=== PATIENT | female | born 1990 | race Caucasian/White ===

== ENCOUNTER 2017-04-09 08:26 | Emergency (ER) | payer OTHER ==
[~2017-04-09] VITALS: Ht 175.3 cm; Wt 113.4 kg
[~2017-04-09 08:26] MED LIST: BACTRIM DS TAB1 EACH PO; BUSPIRONE HCL15 MG PO; FLEXERIL10 MG PO; GUAIATUSSIN AC10 ML PO; LEXAPRO10 MG PO; LEXAPRO20 MG PO; NAPROSYN500 MG PO; OMEPRAZOLE20 MG PO; ULTRAM50 MG PO; VICODIN 5-5001 EACH PO; ZITHROMAX500 MG PO; ZOFRAN4 MG PO
[2017-04-09] MEDS ORDERED: NORCO 5-325 TA1 EACH PO (10:16)
== END 2017-04-09 10:29 | disposition home or self-care (01) ==
LOC: ED 08:26
DX: S70.01XA Contusion of right hip, initial encounter (principal); F41.1 Generalized anxiety disorder; F60.3 Borderline personality disorder; F17.200 Nicotine dependence, unspecified, uncomplicated; Z79.899 Other long term (current) drug therapy; W50.0XXA Accidental hit or strike by another person, initial encounter
CPT/HCPCS: 72170; 84703; 99283

== ENCOUNTER 2018-09-05 21:08 | Emergency (ER) | payer OTHER ==
[~2018-09-05] VITALS: Ht 175.3 cm; Wt 113.4 kg
[~2018-09-05 21:08] MED LIST changes: +NORCO 5-325 TA1 EACH PO
--- OUTSIDE RECORDS SUMMARY | 2018-09-05 21:14 | XMS ---
PreManage Notification: LUISANA MAYES Security Tugboat Pilot Events No recent Security Events currently on file CRITERIA MET - Group Notification CARE PROVIDERS TIP YAÑEZ Primary Care Current PHONE: [phone] Wally has no Care Guidelines for this patient. EChiquita VISIT COUNT (12 MO.) 1 [facility] TOTAL 1 NOTE: Visits indicate total known visits. ED/UCC VISIT TRACKING (12 MO.) 09/05/2018 21:09 [facility] [place] TYPE: Emergency COMPLAINT: - HEADACHE/NECK PAIN-NON INJURY INPATIENT VISIT TRACKING (12 MO.) No inpatient visits to display in this time frame [id number]
== END 2018-09-05 22:28 | disposition home or self-care (01) ==
LOC: ED 21:08
PROC: 009U3ZX Drainage of Spinal Canal, Percutaneous Approach, Diagnostic (ICD-10-PCS; principal; 2018-09-05)
DX: J06.9 Acute upper respiratory infection, unspecified (principal); F41.9 Anxiety disorder, unspecified; F32.9 Major depressive disorder, single episode, unspecified; F43.10 Post-traumatic stress disorder, unspecified; Z79.899 Other long term (current) drug therapy
CPT/HCPCS: 62270; 87070; 87205; 99283-25

== ENCOUNTER 2019-07-14 08:52 | Emergency (ER) | payer OTHER ==
[~2019-07-14] VITALS: Ht 175.3 cm; Wt 136.1 kg
--- OUTSIDE RECORDS SUMMARY | 2019-07-14 08:54 | XMS ---
PreManage Notification: LUISANA MAYES Security Service Counselor Events No recent Security Events currently on file CRITERIA MET - Group Notification CARE PROVIDERS Isaura Mcdonnell Nurse Practitioner: 09/07/2018-Current PHONE: Unknown ISAURA MCDONNELL Primary Care Current PHONE: [phone] Wally has no Care Guidelines for this patient. Tressa VISIT COUNT (12 MO.) 2 ALEXANDER Bean TOTAL 2 NOTE: Visits indicate total known visits. ED/UCC VISIT TRACKING (12 MO.) 07/14/2019 08:52 [facility] [place] TYPE: Emergency COMPLAINT: - MED REFILL 09/05/2018 21:09 [facility] [place] TYPE: Emergency COMPLAINT: - HEADACHE/NECK PAIN-NON INJURY DIAGNOSES: - Major depressive disorder, single episode, unspecified - Headache - Post-traumatic stress disorder, unspecified - Other terminal press operator (current) drug therapy - Anxiety disorder, unspecified - Acute upper respiratory infection, unspecified INPATIENT VISIT TRACKING (12 MO.) No inpatient visits to display in this time frame [email or web address]
[2019-07-14] MEDS ORDERED: LEXAPRO20 MG PO (09:11)
== END 2019-07-14 09:20 | disposition home or self-care (01) ==
LOC: ED 08:52
DX: Z76.0 Encounter for issue of repeat prescription (principal); F41.9 Anxiety disorder, unspecified; F32.9 Major depressive disorder, single episode, unspecified
CPT/HCPCS: 99281

== ENCOUNTER 2019-09-29 12:48 | Emergency (ER) | payer OTHER ==
[~2019-09-29] VITALS: Ht 175.3 cm; Wt 136.1 kg
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
== END 2019-09-29 15:33 | disposition left against medical advice (07) ==
LOC: ED 12:48
DX: Z53.21 Procedure and treatment not carried out due to patient leaving prior to being seen by health care provider (principal)

== ENCOUNTER 2020-04-18 08:43 | Emergency (ER) | payer OTHER ==
[~2020-04-18] VITALS: Ht 175.3 cm; Wt 136.1 kg
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
[2020-04-18] MEDS ORDERED: LOPERAMIDE2 MG PO (09:07)
[2020-04-18] MEDS ORDERED: VAGISIL CREAM28 G1 TOP (09:07)
== END 2020-04-18 09:25 | disposition home or self-care (01) ==
LOC: ED 08:43
DX: R19.7 Diarrhea, unspecified (principal); M70.841 Other soft tissue disorders related to use, overuse and pressure, right hand; B37.3 Candidiasis of vulva and vagina; F41.9 Anxiety disorder, unspecified; F32.9 Major depressive disorder, single episode, unspecified; Z79.899 Other long term (current) drug therapy
CPT/HCPCS: 99283

== ENCOUNTER 2020-05-03 07:16 | Emergency (ER) | payer OTHER ==
[~2020-05-03] VITALS: Ht 175.3 cm; Wt 145.2 kg
[~2020-05-03 07:16] MED LIST changes: +LOPERAMIDE2 MG PO; +VAGISIL CREAM28 G1 TOP
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
[2020-05-03] MEDS ORDERED: PROMETHAZINE HC25 M1 PO (11:24)
== END 2020-05-03 11:46 | disposition home or self-care (01) ==
LOC: ED 07:16
DX: O21.0 Mild hyperemesis gravidarum (principal); O99.341 Other mental disorders complicating pregnancy, first trimester; F41.1 Generalized anxiety disorder; F32.9 Major depressive disorder, single episode, unspecified; Z87.891 Personal history of nicotine dependence; Z3A.01 Less than 8 weeks gestation of pregnancy
CPT/HCPCS: 80053; 81001; 85025; 96361; 96374; 96376; 99284-25; J2550; J7030

== ENCOUNTER 2020-05-10 07:39 | Emergency (ER) | payer OTHER ==
[~2020-05-10] VITALS: Ht 175.3 cm; Wt 145.2 kg
[~2020-05-10 07:39] MED LIST changes: +PROMETHAZINE HC25 M1 PO
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
[2020-05-10] MEDS ORDERED: LOVENOX120 MG/0.8 SUB-Q (10:31)
== END 2020-05-10 10:41 | disposition home or self-care (01) ==
LOC: ED 07:39
DX: O22.31 Deep phlebothrombosis in pregnancy, first trimester (principal); I82.621 Acute embolism and thrombosis of deep veins of right upper extremity; O99.89 Other specified diseases and conditions complicating pregnancy, childbirth and the puerperium; I47.1 Supraventricular tachycardia; Z3A.08 8 weeks gestation of pregnancy; Z87.891 Personal history of nicotine dependence
CPT/HCPCS: 80048; 85025; 93971; 96372; 99284-25; J1650

== ENCOUNTER 2020-09-01 10:26 | Emergency (ER) | payer OTHER ==
[~2020-09-01] VITALS: Ht 175.3 cm; Wt 145.1 kg
[~2020-09-01 10:26] MED LIST changes: +CEPHALEXIN500 MG PO; +LOVENOX120 MG/0.8 SUB-Q
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
[2020-09-01] MEDS ORDERED: PRENATA CHEWAB1 EACH PO (10:35)
--- NOTE | 2020-09-01 13:53 | EKG ---
[facility] [address] [facility] [place] [address] Signed Normal sinus rhythm Normal ECG No previous ECGs available Confirmed by JUVENAL KILLIAN MD ([id number]) on 09/01/2020 1:52:38 PM Electronically Signed By: JUVENAL KILLIAN MD 09/01/20 1353 PATIENT NAME: LUISANA MAYES Electrocardiogram DATE OF : 86 PHYSICIAN: JUVENAL KILLIAN MD REPORT #: [id number] REPORT IS CONFIDENTIAL AND NOT TO BE RELEASED WITHOUT AUTHORIZATION
== END 2020-09-01 12:58 | disposition home or self-care (01) ==
LOC: ED 10:26
DX: O99.891 Other specified diseases and conditions complicating pregnancy (principal); R07.89 Other chest pain; Z20.828 Contact with and (suspected) exposure to other viral communicable diseases; Z87.891 Personal history of nicotine dependence; Z88.8 Allergy status to other drugs, medicaments and biological substances
CPT/HCPCS: 80053; 83735; 84484; 85025; 93005; 93010; 99285-25; C9803; U0003

== ENCOUNTER 2020-12-11 00:25 | Inpatient (IN) | payer OTHER ==
[~2020-12-11] VITALS: Ht 175.3 cm; Wt 155.6 kg
[~2020-12-11 00:25] MED LIST changes: +PRENATA CHEWAB1 EACH PO
[2020-12-11] MEDS ORDERED: PRILOSEC OTC20 MG PO (01:09)
--- NOTE | 2020-12-11 02:23 | NUR ---
[facility] RAPID COVID TEST DONE PER ORDER. COVID TEST COLLECTED FROM BOTH NARES W/O ISSUE. PT TOLERATED WELL.
--- NOTE | 2020-12-11 08:42 | PR ---
[facility] [address] [facility] [place] [address] Signed Progress Notes IP Datetime Report Generated by CPN: 12/11/2020 08:42 PROGRESS NOTES: [id number] Impression: Normal Progression of Labor Procedures: Artificial ROM Plan: Continue Present Management; Anticipate Vaginal Delivery VITAL SIGNS: [id number] Vital Signs: Reviewed; Within Normal Limits EXAM: [id number] Dilatation: 4.0 Effacement: 50 Station: -3 Contractions: irregular MEMBRANES: [id number] Membranes Status: Ruptured Comments: Tolerating contracitons well, considering Epidural later. Willc ontinue to follow FETUS A: [id number] FHR Baseline: 140 Variability: Moderate 6-25bpm Accelerations: 15X15 Presentation: Vertex FETUS B: [id number] Signing Physician: Gualberto Murphy MD Copies: ~ *Electronically Signed* 12/11/20 0842 GUALBERTO MURPHY MD PATIENT NAME: LUISANA MAYES PROGRESS NOTE DATE OF : 86 PHYSICIAN: GUALBERTO MURPHY MD RPT #: [id number] REPORT IS CONFIDENTIAL AND NOT TO BE RELEASED WITHOUT AUTHORIZATION
--- NOTE | 2020-12-11 13:10 | PR ---
[facility] [address] [facility] [place], [place] [address] Signed Progress Notes IP Datetime Report Generated by CPN: 12/11/2020 13:10 PROGRESS NOTES: [id number] Impression: Normal Progression of Labor Procedures: Artificial ROM Plan: Continue Present Management VITAL SIGNS: [id number] Vital Signs: Reviewed; Within Normal Limits EXAM: [id number] Dilatation: 5.0 Effacement: 75 Station: -3 Contractions: irregular MEMBRANES: [id number] Membranes Status: Ruptured Comments: Contractions getting strong per patient, but not picking up well on external monitor. Beginning to make some change wo will continue moniitor. Patient considering Epidural soon, but not yet. FETUS A: [id number] FHR Baseline: 140 Variability: Moderate 6-25bpm Accelerations: 15X15 Presentation: Vertex FETUS B: [id number] Signing Physician: Gualberto Murphy MD Copies: ~ *Electronically Signed* 12/11/20 1310 GUALBERTO MURPHY MD PATIENT NAME: LUISANA MAYES PROGRESS NOTE DATE OF : 86 PHYSICIAN: GUALBERTO MURPHY MD RPT #: [id number] REPORT IS CONFIDENTIAL AND NOT TO BE RELEASED WITHOUT AUTHORIZATION
--- NOTE | 2020-12-11 15:37 | PR ---
[facility] [address] [facility] [place] [address] Signed Progress Notes IP Datetime Report Generated by CPN: 12/11/2020 15:37 PROGRESS NOTES: [id number] Impression: Normal Progression of Labor Other Impressions: Slow progress Procedures: Intrauterine Pressure Catheter Plan: Augmentation Other Plans: Pitocin VITAL SIGNS: [id number] Vital Signs: Reviewed; Within Normal Limits EXAM: [id number] Dilatation: 6.0 Effacement: 50 Station: -3 Contractions: irregular MEMBRANES: [id number] Membranes Status: Ruptured Comments: Contractions seem to not be close enoug; will start Pitocin augmentation. FETUS A: [id number] FHR Baseline: 140 Variability: Moderate 6-25bpm Accelerations: 15X15 Presentation: Vertex FETUS B: [id number] Signing Physician: Gualberto Murphy MD Copies: ~ *Electronically Signed* 12/11/20 1537 GUALBERTO MURPHY MD PATIENT NAME: LUISANA MAYES PROGRESS NOTE DATE OF : 86 PHYSICIAN: GUALBERTO MURPHY MD RPT #: [id number] REPORT IS CONFIDENTIAL AND NOT TO BE RELEASED WITHOUT AUTHORIZATION
--- NOTE | 2020-12-12 18:18 | PR ---
[facility] [address] [place] [address] Signed PP Progress Notes Datetime Report Generated by CPN: 12/12/2020 18:17 SUBJECTIVE: [id number] Pain: Within Normal Limits Nausea/Vomiting: Present Vital Signs: [id number] Vital Signs: Reviewed; Within Normal Limits Abdomen/Uterus: Normal Lochia: Normal Extremities: Normal IMPRESSION/PLAN/PROCEDURES: [id number] Impression: Normal Progression Plan: Continue Present Management Procedures: None Progress Notes: Doing well, without complalint, tolerating Lovenox injections, BP elevated this am, but resolvbed spontaneously using bigger cuff, since large patient size. Probably home tomorrow. Signing Physician: Gualberto Murphy MD Copies: ~ *Electronically Signed* 12/12/201816 GUALBERTO MURPHY MD PATIENT NAME: LUISANA MAYES PROGRESS NOTE DATE OF : 86 PHYSICIAN: GUALBERTO MURPHY MD RPT #: [id number] REPORT IS CONFIDENTIAL AND NOT TO BE RELEASED WITHOUT AUTHORIZATION
--- NOTE | 2020-12-13 11:00 | PR ---
[facility] [address] [facility] [place] [address] Signed PP Progress Notes Datetime Report Generated by CPN: 12/13/2020 11:00 SUBJECTIVE: [id number] Pain: Within Normal Limits Nausea/Vomiting: Denies Vital Signs: [id number] Vital Signs: Reviewed; Within Normal Limits Abdomen/Uterus: Normal Lochia: Normal Extremities: Normal IMPRESSION/PLAN/PROCEDURES: [id number] Impression: Normal Progression Plan: Discharge Procedures: None Progress Notes: Doing well, without complaint, ready to go home. No problems with right arm. Signing Physician: Gualberto Murphy MD Copies: ~ *Electronically Signed* 12/13/20 [facility] GUALBERTO MURPHY MD PATIENT NAME: LUISANA MAYES PROGRESS NOTE DATE OF : 86 PHYSICIAN: GUALBERTO MURPHY MD RPT #: [id number] REPORT IS CONFIDENTIAL AND NOT TO BE RELEASED WITHOUT AUTHORIZATION
--- NOTE | 2020-12-13 11:01 | PR ---
[facility] [address] [facility] [place] [address] Signed PP Progress Notes Datetime Report Generated by CPN: 12/13/2020 11:01 SUBJECTIVE: [id number] Pain: Within Normal Limits Nausea/Vomiting: Denies Vital Signs: [id number] Vital Signs: Reviewed; Within Normal Limits Abdomen/Uterus: Normal Lochia: Normal Extremities: Normal IMPRESSION/PLAN/PROCEDURES: [id number] Impression: Normal Progression Plan: Discharge Procedures: None Progress Notes: Doing well, without complaint, ready to go home. No problems with right arm. Signing Physician: Gualberto Murphy MD Copies: ~ *Electronically Signed* 12/13/20 1101 GUALBERTO MURPHY MD PATIENT NAME: LUISANA MAYES PROGRESS NOTE DATE OF : 86 PHYSICIAN: GUALBERTO MURPHY MD RPT #: [id number] REPORT IS CONFIDENTIAL AND NOT TO BE RELEASED WITHOUT AUTHORIZATION
== END 2020-12-13 13:00 | disposition home or self-care (01) | DRG 806 ==
LOC: FBC 00:25 → MS 12-12 12:10 → FBC 12-12 14:26
PROVIDERS: ADMIT General Practice; ATTEND General Practice
PROC: 10E0XZZ Delivery of Products of Conception, External Approach (ICD-10-PCS; principal; 2020-12-11)
PROC: 10907ZC Drainage of Amniotic Fluid, Therapeutic from Products of Conception, Via Natural or Artificial Opening (ICD-10-PCS; 2020-12-11)
PROC: 10H07YZ Insertion of Other Device into Products of Conception, Via Natural or Artificial Opening (ICD-10-PCS; 2020-12-11)
PROC: 0HQ9XZZ Repair Perineum Skin, External Approach (ICD-10-PCS; 2020-12-11)
PROC: 00HU33Z Insertion of Infusion Device into Spinal Canal, Percutaneous Approach (ICD-10-PCS; 2020-12-11)
PROC: 3E0R3BZ Introduction of Anesthetic Agent into Spinal Canal, Percutaneous Approach (ICD-10-PCS; 2020-12-11)
PROC: 3E0234Z Introduction of Serum, Toxoid and Vaccine into Muscle, Percutaneous Approach (ICD-10-PCS; 2020-12-12)
DX: O87.1 Deep phlebothrombosis in the puerperium (principal); I82.621 Acute embolism and thrombosis of deep veins of right upper extremity; Z37.0 Single live birth; O99.324 Drug use complicating childbirth; Z20.822 Contact with and (suspected) exposure to COVID-19; Z3A.39 39 weeks gestation of pregnancy; O70.0 First degree perineal laceration during delivery; F12.90 Cannabis use, unspecified, uncomplicated; O99.344 Other mental disorders complicating childbirth; F41.9 Anxiety disorder, unspecified; F32.9 Major depressive disorder, single episode, unspecified; O26.893 Other specified pregnancy related conditions, third trimester; O69.81X0 Labor and delivery complicated by cord around neck, without compression, not applicable or unspecified; Z67.21 Type B blood, Rh negative; Z88.8 Allergy status to other drugs, medicaments and biological substances; Z79.01 Long term (current) use of anticoagulants; Z87.891 Personal history of nicotine dependence; Z87.440 Personal history of urinary (tract) infections; Z86.19 Personal history of other infectious and parasitic diseases
CPT/HCPCS: 01960; 36415; 82565; 83030; 84450; 84520; 84550; 85025; 85027; 85730; 86850; 86870; 86900; 86901; A9270; C9803; J1650; J2590; J2790; J2795; J3010; U0003

== ENCOUNTER 2021-12-20 12:17 | Emergency (ER) | payer OTHER ==
[~2021-12-20] VITALS: Ht 182.9 cm; Wt 155.6 kg
[~2021-12-20 12:17] MED LIST changes: +PRILOSEC OTC20 MG PO
--- OUTSIDE RECORDS SUMMARY | 2021-12-20 12:24 | XMS ---
PreManage Notification: LUISANA MAYES Security Autocutter Events No recent Security Events currently on file CRITERIA MET - Group Notification CARE PROVIDERS GUALBERTO MURPHY [facility] 07/15[facility]-Current PHONE: Unknown Isaura Mcdonnell Nurse Practitioner: 09/07/2018-Current PHONE: Unknown Care Guidelines exist for the following facilities: [facility] ( 01/15/2020 ) Care History Medical/Surgical 05/06/2020 [facility] - PATIENT CURRENT OBLAUREN- DR MURPHY-NEXT APT 09/10/2020. E.D. VISIT COUNT (12 MO.) 1 ALEXANDER Bean TOTAL 1 NOTE: Visits indicate total known visits. ED/UCC VISIT TRACKING (12 MO.) 12/20/2021 12:17 [facility] [place] TYPE: Emergency COMPLAINT: - CHEST PAIN INPATIENT VISIT TRACKING (12 MO.) No inpatient visits to display in this time frame [email or web address]
--- NOTE | 2021-12-21 07:39 | EKG ---
[facility] [address] [facility] [place], [place] [address] Signed Normal sinus rhythm Normal ECG When compared with ECG of 01-SEP-2020 10:29, No significant change was found Confirmed by HAVEN RAMOS MD ([id number]) on 12/21/2021 7:38:47 AM Electronically Signed By: HAVEN RAMOS MD 12/21/21 0739 PATIENT NAME: LUISANA MAYES KELLY Electrocardiogram DATE OF : 86 PHYSICIAN: HAVEN RAMOS MD REPORT #: [id number] REPORT IS CONFIDENTIAL AND NOT TO BE RELEASED WITHOUT AUTHORIZATION
== END 2021-12-20 15:54 | disposition home or self-care (01) ==
LOC: ED 12:17
DX: R07.89 Other chest pain (principal); Z86.718 Personal history of other venous thrombosis and embolism; Z87.891 Personal history of nicotine dependence; Z88.8 Allergy status to other drugs, medicaments and biological substances
CPT/HCPCS: 36415; 71045; 71260; 80053; 84484; 84703; 85025; 85379; 93005; 93010; 99285-25; Q9967

== ENCOUNTER 2022-07-29 10:51 | Emergency (ER) | payer OTHER ==
[~2022-07-29] VITALS: Ht 175.3 cm; Wt 160.6 kg
--- OUTSIDE RECORDS SUMMARY | 2022-07-29 10:59 | XMS ---
PreManage Notification: LUISANA MAYES Security Windows Server Engineer Events No recent Security Events currently on file CRITERIA MET - Group Notification CARE PROVIDERS GUALBERTO MURPHY [facility] 07/15/2020-Current PHONE: Unknown Isaura Mcdonnell Nurse Practitioner: 09/07/2018-Current PHONE: Unknown Care Guidelines exist for the following facilities: [facility] ( 01/15/2020 ) Care History Medical/Surgical 05/06/2020 [facility] - PATIENT CURRENT OBLAUREN- DR MURPHY-NEXT APT 09/10/2020. E.D. VISIT COUNT (12 MO.) [address] [facility] TOTAL 3 NOTE: Visits indicate total known visits. ED/UCC VISIT TRACKING (12 MO.) 07/29/2022 10:52 [facility] [place] TYPE: Emergency COMPLAINT: - CHEST CONGESTION, VOMITING, CHILLS 03/12/2022 10:24 [facility] [place] TYPE: Emergency COMPLAINT: - SORE THROAT, SOB, COLD SYMPTOMS 12/20/2021 12:[address] [facility] [place] TYPE: Emergency COMPLAINT: - CHEST PAIN DIAGNOSES: - Other chest pain - Personal history of nicotine dependence - Personal history of other venous thrombosis and embolism - Allergy status to other drugs, medicaments and biological substances INPATIENT VISIT TRACKING (12 MO.) No inpatient visits to display in this time frame [email or web address]
[2022-07-29] MEDS ORDERED: VENTOLIN HFA18 GM INH (12:25)
[2022-07-29] MEDS ORDERED: DOXYCYCLINE HY100 MG PO (12:25)
== END 2022-07-29 12:56 | disposition home or self-care (01) ==
LOC: ED 10:51
DX: J44.9 Chronic obstructive pulmonary disease, unspecified (principal); Z20.822 Contact with and (suspected) exposure to COVID-19; F43.10 Post-traumatic stress disorder, unspecified; Z87.891 Personal history of nicotine dependence; Z88.8 Allergy status to other drugs, medicaments and biological substances
CPT/HCPCS: 87502; 99284; A9270; C9803; U0003

== ENCOUNTER 2022-10-15 10:05 | Emergency (ER) | payer OTHER ==
[~2022-10-15] VITALS: Ht 175.3 cm; Wt 157.9 kg
[~2022-10-15 10:05] MED LIST changes: +DOXYCYCLINE HY100 MG PO; +VENTOLIN HFA18 GM INH
--- OUTSIDE RECORDS SUMMARY | 2022-10-15 10:13 | XMS ---
PreManage Notification: LUISANA MAYES Security Cover Marker Events No recent Security Events currently on file CRITERIA MET - Group Notification CARE PROVIDERS GUALBERTO MURPHY [facility] 07/15/2020-Current PHONE: Unknown Isaura Mcdonnell Nurse Practitioner: 09/07/2018-Current PHONE: Unknown Care Guidelines exist for the following facilities: [facility] ( 01/15/2020 ) Care History Medical/Surgical 05/06/2020 [facility] - PATIENT CURRENT OBLAUREN- DR MURPHY-NEXT APT 09/10/2020. E.D. VISIT COUNT (12 MO.) [address] [facility] TOTAL 4 NOTE: Visits indicate total known visits. ED/UCC VISIT TRACKING (12 MO.) 10/15/2022 10:06 [facility] [place] TYPE: Emergency COMPLAINT: - SOB, COUGH 07/29/2022 10:52 [facility] [place] TYPE: Emergency COMPLAINT: - CHEST CONGESTION, VOMITING, CHILLS DIAGNOSES: - Allergy status to other drugs, medicaments and biological substances - Chronic obstructive pulmonary disease, unspecified - Post-traumatic stress disorder, unspecified - Personal history of nicotine dependence - Cough, unspecified - Contact with and (suspected) exposure to COVID-19 03/12/2022 10:[address] [facility] [place] TYPE: Emergency COMPLAINT: - SORE THROAT, SOB, COLD SYMPTOMS 12/20/2021 12:[address] [facility] [place] TYPE: Emergency COMPLAINT: - CHEST PAIN DIAGNOSES: - Personal history of other venous thrombosis and embolism - Allergy status to other drugs, medicaments and biological substances - Other chest pain - Personal history of nicotine dependence INPATIENT VISIT TRACKING (12 MO.) No inpatient visits to display in this time frame [email or web address]
[2022-10-15] MEDS ORDERED: PREDNISONE20 MG PO (11:52)
== END 2022-10-15 12:08 | disposition home or self-care (01) ==
LOC: ED 10:05
DX: J20.9 Acute bronchitis, unspecified (principal); Z88.8 Allergy status to other drugs, medicaments and biological substances; Z87.891 Personal history of nicotine dependence
CPT/HCPCS: 99283; J7512

== ENCOUNTER 2022-12-21 14:55 | Emergency (ER) | payer OTHER ==
[~2022-12-21] VITALS: Ht 175.3 cm; Wt 158.8 kg
[~2022-12-21 14:55] MED LIST changes: +PREDNISONE20 MG PO
--- OUTSIDE RECORDS SUMMARY | 2022-12-21 15:03 | XMS ---
PreManage Notification: LUISANA MAYES Security Resident Care Associate Events No recent Security Events currently on file CRITERIA MET - Group Notification CARE PROVIDERS -[facility]- Dentist: [employer] [facility] PHONE: [phone] GUALBERTO MURPHY [employer] 07/15/2020-Current PHONE: Unknown Isaura Mcdonnell Nurse Practitioner: 09/07/2018-Current PHONE: Unknown Care Guidelines exist for the following facilities: [facility] ( 01/15/2020 ) Care History Medical/Surgical 05/06/2020 [facility] - PATIENT CURRENT OBGYN- DR MURPHY-NEXT APT 09/10/2020. [place] [facility] NOTE: Visits indicate total known visits. ED/UCC VISIT TRACKING (12 MO.) [facility]22 14[facility] [place] [facility] COMPLAINT: - FOOT INJURY 10/15/2022 10:06 [facility] [place]: Emergency COMPLAINT: - SOB, COUGH DIAGNOSES: - Acute bronchitis, unspecified - Allergy status to other drugs, medicaments and biological substances - Personal history of nicotine dependence - Cough, unspecified 07/29/2022 10:52 [facility] [place] TYPE: Emergency COMPLAINT: - CHEST CONGESTION, VOMITING, CHILLS DIAGNOSES: - Personal history of nicotine dependence - Cough, unspecified - Contact with and (suspected) exposure to COVID-19 - Allergy status to other drugs, medicaments and biological substances - Chronic obstructive pulmonary disease, unspecified - Post-traumatic stress disorder, unspecified 03/12/2022 10:24 [facility] [place]: Emergency COMPLAINT: - SORE THROAT, SOB, COLD SYMPTOMS INPATIENT VISIT TRACKING (12 MO.) No inpatient visits to display in this time frame [email or web address]
[2022-12-21] MEDS ORDERED: HYDROCODON-ACE1 EA11 PO (15:56)
[2022-12-21 16:36] VITALS: BP 151/137
== END 2022-12-21 16:36 | disposition home or self-care (01) ==
LOC: ED 14:55
DX: S82.392A Other fracture of lower end of left tibia, initial encounter for closed fracture (principal); X50.1XXA Overexertion from prolonged static or awkward postures, initial encounter; Z87.891 Personal history of nicotine dependence; Z88.8 Allergy status to other drugs, medicaments and biological substances; Z79.899 Other long term (current) drug therapy
CPT/HCPCS: 73610; A9270

== ENCOUNTER 2023-01-23 18:37 | Emergency (ER) | payer OTHER ==
[~2023-01-23] VITALS: Ht 175.3 cm; Wt 158.8 kg
[~2023-01-23 18:37] MED LIST changes: +HYDROCODON-ACE1 EA11 PO
--- OUTSIDE RECORDS SUMMARY | 2023-01-23 18:50 | XMS ---
PreManage Notification: LUISANA MAYES Security Manager Of Development Events No recent Security Events currently on file CRITERIA MET - Group Notification - PDMP CARE PROVIDERS -[facility]- Dentist: Management Accountant Pending Sale To [facility] PHONE: [phone] GUALBERTO MURPHY Management Accountant 07/15/2020-Current PHONE: Unknown Isaura Mcdonnell Nurse Practitioner: 09/07/2018-Current PHONE: Unknown Care Guidelines exist for the following facilities: [facility] ( 01/15/2020 ) Care History Medical/Surgical 05/06/2020 [facility] - PATIENT CURRENT OBGYN- DR MURPHY-NEXT APT 09/10/2020. [place] [facility] NOTE: Visits indicate total known visits. 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 - Overexertion from prolonged static or awkward postures, initial encounter - Pain in left ankle and joints of left foot - Personal history of nicotine dependence 10/15/2022 10:06 [facility] [place] TYPE: Emergency COMPLAINT: - SOB, COUGH DIAGNOSES: - Acute bronchitis, unspecified - Allergy status to other drugs, medicaments and biological substances - Cough, unspecified - Personal history of nicotine dependence 07/29/2022 10:52 [facility] [place]: Emergency COMPLAINT: - CHEST CONGESTION, VOMITING, CHILLS DIAGNOSES: - Allergy status to other drugs, medicaments and biological substances - Chronic obstructive pulmonary disease, unspecified - Contact with and (suspected) exposure to COVID-19 - Cough, unspecified - Personal history of nicotine dependence - Post-traumatic stress disorder, unspecified 03/12/2022 10:24 [facility] [place]: Emergency COMPLAINT: - SORE THROAT, SOB, COLD SYMPTOMS INPATIENT VISIT TRACKING (12 MO.) No inpatient visits to display in this time frame [email or web address]
[2023-01-23 20:50] VITALS: BP 00/00
== END 2023-01-23 20:56 ==
LOC: ED 18:37
DX: R09.2 Respiratory arrest (principal); F43.10 Post-traumatic stress disorder, unspecified; Z87.891 Personal history of nicotine dependence; Z88.8 Allergy status to other drugs, medicaments and biological substances; Z79.899 Other long term (current) drug therapy; Z79.52 Long term (current) use of systemic steroids
CPT/HCPCS: 31500; 92950; 99285-25; J0171